=== PATIENT | male | born 1960 | race Caucasian/White ===

== ENCOUNTER 2016-06-25 19:43 | Emergency (ER) | payer SELFPAY ==
[~2016-06-25] VITALS: Ht 170.2 cm; Wt 74.8 kg
--- NOTE | 2016-06-25 19:46 | NUR ---
Patient BIB [facility] for ETOH intoxication. Patient has no medical complaint at this time, A/O x2, unsteady gait. Patient requires additional observation due to level of intoxication. Nursing Jumbo Operator notified, no 1:1 sitter available. Security at bedside for safety.
[2016-06-25] MEDS: LORAZEPAM 2 MG/1 ML VIAL IM ONE (20:06)
[2016-06-25] MEDS ORDERED: LORAZEPAM 2 MG/1 ML VIAL ONE (20:12)
[2016-06-25 20:24] LABS: BASOPHILS % (AUTO) 0.2 % (0.0-2.0); EOSINOPHILS % (AUTO) 0.8 % (0.0-7.0); HEMATOCRIT 38.2 % (40-50); HEMOGLOBIN 12.2 G/DL (14.0-18.0); LYMPHOCYTES # (AUTO) 0.5 K/UL (0.8-4.8); LYMPHOCYTES % (AUTO) 20.6 % (20.5-51.5); MEAN CORPUSCULAR HEMOGLOBIN 26.8 UUG (27.0-31.0); MEAN CORPUSCULAR HGB CONC 32 g/dL (32.0-37.0); MEAN CORPUSCULAR VOLUME 83.7 FL (82.0-92.0); MONOCYTES % (AUTO) 0.7 % (0.0-11.0); NEUTROPHILS % (AUTO) 77.7 % (38.5-71.5); PLATELET COUNT (AUTO) 258 K/UL (150-450); RED BLOOD CELL COUNT(AUTO) 4.56 MIL/UL (4.7-6.1); RED CELL DISTRIBUTION WIDTH 15.8 % (11.5-14.5); WHITE BLOOD COUNT (AUTO) 2.5 K/UL (4.0-11.2)
[2016-06-25 20:26] LABS: CALCIUM 8.8 mg/dL (8.5-10.1); CREATININE 0.8 mg/dL (0.6-1.3); POTASSIUM 3.9 mmol/L (3.5-5.1)
[2016-06-25 20:32] LABS: ALBUMIN 3.9 g/dL (3.4-5.0); BILIRUBIN,DIRECT 0.1 mg/dL (0.0-0.2); BILIRUBIN,TOTAL 0.2 mg/dL (0.2-1.0); TOTAL PROTEIN, SERUM 7.8 g/dL (6.4-8.2)
[2016-06-25 20:53] LABS: NEUTROPHILS % (MANUAL) 80 % (42-75)
[2016-06-25 20:54] LABS: ANISOCYTOSIS 1+; BAND % (MANUAL) 2 % (0-10); LYMPHOCYTES % (MANUAL) 16 % (20-40); MONOCYTES % (MANUAL) 2 % (2-10); PLATELET ESTIMATE ADEQUATE
--- NOTE | 2016-06-25 21:22 | NUR ---
Patient sleeping in bed, security left bedside at this time.
--- NOTE | 2016-06-25 21:58 | NUR ---
Patient is resting comfortably in bed with eyes closed
--- NOTE | 2016-06-25 23:13 | NUR ---
Patient is resting comfortably in bed with eyes closed
--- NOTE | 2016-06-26 01:00 | NUR ---
Patient ambulating in the room with a steady gait, requesting food/drink, security at bedside for safety. Patient stated he wants to leave but continues to wander in the room. ERMD notified.
--- NOTE | 2016-06-26 02:01 | NUR ---
Patient resting in bed with eyes closed, security departed.
--- NOTE | 2016-06-26 03:22 | NUR ---
Patient ambulating in room, gathering personal items and getting dressed. Patient's gait is steady and speech has improved. Patient stated that he would like another sandwich and would like to continue to rest. Due to patient's ETOH level, patient encouraged to remain until safe to discharge. Patient returned to bed.
--- NOTE | 2016-06-26 04:15 | NUR ---
Patient is resting comfortably in bed with eyes closed
--- NOTE | 2016-06-26 05:25 | NUR ---
Patient is resting comfortably in bed with eyes closed
--- NOTE | 2016-06-26 06:24 | NUR ---
Jaclyn farley in ED - 06/26/16 at 0625 by BILLY Patient discharged to home in stable conditon. Written and verbal after care instructions given. Patient verbalizes understanding of instructions.
--- NOTE | 2016-06-26 06:25 | NUR ---
Patient discharged to home in stable conditon. Written and verbal after care instructions given. Patient verbalizes understanding of instructions.
--- NOTE | 2016-06-26 06:25 | NUR ---
Patient requested aptricia harrington, Nursing Sap Project Manager Notified.
== END 2016-06-26 06:56 | disposition home or self-care (01) ==
LOC: ER 19:45
DX: F10.129 Alcohol abuse with intoxication, unspecified (principal); D72.819 Decreased white blood cell count, unspecified; D64.9 Anemia, unspecified
CPT/HCPCS: 36415; 85025; A4663; G6040-TC; J2060